=== PATIENT | female | born 1980 | race Caucasian/White ===

== ENCOUNTER 2023-12-28 22:28 | Emergency (ER) | payer OTHER ==
[~2023-12-28] VITALS: Ht 165.1 cm; Wt 59.0 kg
[2023-12-28 22:41] VITALS: BP 98/69; O2SAT 100
[2023-12-28] MEDS ORDERED: SYNTHROID88 MCG PO (22:42)
[2023-12-28] MEDS ORDERED: 0.9 % SODIUM CHLORIDE 1,000 ML IV SCH (23:45)
== END 2023-12-29 00:37 | disposition left against medical advice (07) ==
LOC: ER 22:28
DX: R55 Syncope and collapse (principal); E03.9 Hypothyroidism, unspecified; Z88.8 Allergy status to other drugs, medicaments and biological substances